=== PATIENT | male | born 1955 | race Caucasian/White ===

== ENCOUNTER 2016-06-05 20:07 | Inpatient (IN) | payer OTHER ==
[~2016-06-05] VITALS: Ht 180.3 cm; Wt 81.6 kg
--- NOTE | 2016-06-05 20:17 | NUR ---
60 YEAR OLD MALE COMPLAINS OF 2 DAYS OF NON RADIATING MID CHEST TIGHTNESS, DENIES SOB. STATES THAT HE HAS ECHO SCHEDULED FOR THIS WEEK DUE TO HE HAD A SYNCOPLE EPISODE OVER A WEEK AGO.
--- NOTE | 2016-06-05 20:21 | ED CARDIAC/CP/PALPITATIONS ---
History of Present Illness General Chief Complaint: Chest Pain Stated Complaint: CHEST PAIN Source: patient, family Exam Limitations: no limitations Vital Signs & Intake/Output Vital Signs & Intake/Output Vital Signs Date Time Temp Pulse Resp B/P Pulse O2 O2 Flow FiO2 Ox Delivery Rate 06/05 2345 96.0 63 18 112/71 98 Nasal 2.0L Cannula 06/058 58 18 116/64 96 Room Air 06/06 2139 96.9 69 18 122/73 98 Nasal 2.0L Cannula 06/05 2114 65 124/81 06/05 2014 97.2 66 18 146/77 98 Room Air Allergies Coded Allergies: No Known Allergies (06/05/16) Reconcile Medications Aspirin (Ecotrin*) 81 MG TABLET.DR 1 TAB PO DAILY HEART/BLOOD (Reported) Cholecalciferol (Vitamin D3) (Vitamin D) (Unknown Strength) CAPSULE (Unknown Dose) PO DAILY SUPPLEMENT (Reported) Ciclopirox Olamine (Ciclopirox) 0.77 % CREAM..G. 1 PALMA TOP BID VITILIGO ( Reported) apply to affected area(s) Levothyroxine Sodium (Levoxyl) 150 MCG TABLET 1 TAB PO EOD THYROID (Reported) Levothyroxine Sodium (Synthroid) 125 MCG TABLET 1 TAB PO EOD THYROID ( Reported) Triage Note: 60 YEAR OLD MALE COMPLAINS OF 2 DAYS OF NON RADIATING MID CHEST TIGHTNESS, DENIES SOB. STATES THAT HE HAS ECHO SCHEDULED FOR THIS WEEK DUE TO HE HAD A SYNCOPLE EPISODE OVER A WEEK AGO. Triage Nurses Notes Reviewed? yes Onset: Gradual Duration: hour(s):, day(s):, waxing and waning Timing: recent history Location: central Radiation: no radiation Activities at Onset: none Aspirin Today: provided at home Associated Symptoms: chest pain, squeezing. HPI: 60-year-old gentleman presents with chest pain for the past 3 days, intermittent , 2-3 out of 10. Nonradiating without diaphoresis or syncopal type symptoms. He notes that on May 25 he had an episode of sudden squeezing chest pain resulting in syncope. He presented to his primary care doctor a few days later who initiated a workup including an EKG and set him up for a cardiac echo. He notes that his chest discomfort is not exertional in nature. He describes it as a squeezing and pressure. He has no shortness of breath. He notes that his brother of a, "massive heart attack, "when he was 54. Past History Travel History Traveled to [place] past 21 day No Medical History Any Pertinent Medical History? 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 No Review of Systems Review of Systems Constitutional: Reports: no symptoms. EENTM: Reports: no symptoms. Respiratory: Reports: no symptoms. Cardiovascular: Reports: no symptoms. GI: Reports: no symptoms. Genitourinary: Reports: no symptoms. Musculoskeletal: Reports: no symptoms. Skin: Reports: no symptoms. Neurological/Psychological: Reports: no symptoms. Hematologic/Endocrine: Reports: no symptoms. Immunologic/Allergic: Reports: no symptoms. All Other Systems: Reviewed and Negative Physical Exam Physical Exam General Appearance: well developed/nourished, mild distress Head: atraumatic, normal appearance Eyes: Bilateral: normal appearance. Ears, Nose, Throat: normal pharynx, normal ENT inspection, hearing grossly normal Neck: normal inspection, supple, full range of motion Respiratory: normal breath sounds, chest non-tender, no respiratory distress, quiet respiration, lungs clear Cardiovascular: regular rate/rhythm Gastrointestinal: normal bowel sounds, soft, non-tender, no organomegaly Back: normal inspection, normal range of motion Extremities: normal inspection, normal capillary refill, normal range of motion, no edema Neurologic/Psych: no motor/sensory deficits, awake, alert, oriented x 3 Skin: intact, normal color, warm/dry Core Measures ACS in differential dx? No Severe Sepsis Present: No Septic Shock Present: No Progress Differential Diagnosis: AMI, aortic dissection, costochondritis, musculoskeletal pain Plan of Care: Orders Procedure Date/time Status Nothing by Mouth 06/06 B Active Add-on Test (ER Only) 06/05 2345 Active Patient Data 06/05 230 Active PARTIAL THROMBOPLASTIN TIME 06/05 2206 Complete PROTHROMBIN TIME 06/05 2206 Complete Saline Lock 06/06 2203 Active Misc Message 06/06 2203 Active ED Holding Orders 06/06 2203 Active Vital Signs 06/06 2203 Active Code Status 06/06 2203 Active Admit to inpatient 06/05 2202 Active EKG 06/05 2152 Active Intake & Output 06/06 2115 Active D-DIMER 06/05 2020 Complete TROPONIN LEVEL 06/05 2016 Complete COMPREHENSIVE METABOLIC PANEL 06/05 2016 Complete CBC WITHOUT DIFFERENTIAL 06/05 2016 Complete EKG 06/05 2008 Active Laboratory Tests 06/05/162239: PT 13.1 H, INR 1.25 H, APTT 31 06/05/162026: Anion Gap 11, Estimated GFR > 60, BUN/Creatinine Ratio 14.2, Glucose 81, Calcium 9.7, Total Bilirubin 0.7, AST 34, ALT 38, Alkaline Phosphatase 87, Troponin I < 0.01, Total Protein 7.2, Albumin 3.8, Globulin 3.4, Albumin/Globulin Ratio 1.1, D-Dimer < 200, CBC w Diff MAN DIFF ORDERED, RBC 5.81, MCV 90.3, MCH 29.9, RDW 14.6 H, MPV 7.1 L, Gran % 56.0, Lymphocytes % 18.1 L, Monocytes % 7.1, Eosinophils % 16.7 H, Basophils % 2.1 H, Absolute Granulocytes 8.2 H, Segmented Neutrophils 52, Band Neutrophils 1, Absolute Lymphocytes 2.7, Lymphocytes 22, Monocytes 8, Absolute Monocytes 1.0 H, Eosinophils 16 H, Absolute Eosinophils 2.4, Basophils 1, Absolute Basophils 0.3, Platelet Estimate ADEQUATE, Normochromic RBCs VERIFIED, PUBS MCHC 33.2 Diagnostic Imaging: Viewed by Me: Radiology Read, CT Scan. Discussed w/RAD: Radiology Read, CT Scan. Radiology Impression: ct angio... no dissection. no pe. CXR Impression: no acute abnormality, no infiltrates, normal size heart, normal mediastinum Initial ED EKG: normal axis, normal intervals, normal p-waves, normal QRS complex, normal sinus rhythm Repeat EKG: unchanged Comments: PATIENT: DRAKE YANG PRESENT AGE: 60 PATIENT ACCOUNT NO: [id number] : 53 LOCATION: [facility] ORDERING PHYSICIAN: JOSE ARMANDO CARBALLO MD SERVICE DATE: 06/05/16 EXAM TYPE: CAT - CTA CHEST-AORTIC DISSECTION STUDY PERFORMED: CTA OF THE CHEST WITH AND WITHOUT CONTRAST CLINICAL INFORMATION: Chest pain. DESCRIPTION: Initial noncontrast CT of the chest was performed. Contrast timing was performed at the level of the pulmonary arteries, arterial phase multidetector volumetric imaging was performed through the chest following the administration of 100 mL Optiray 320 intravenous contrast. No contrast reaction reported Sagittal and coronal reformatted images were obtained on the technologist workstation. Three-dimensional MIP reformatted imaging was performed and reviewed. Total exam dose-length product 907 mGy-cm COMPARISON: Chest radiograph from [facility]. FINDINGS: Vascular: 1. Although contrast bolus timing is optimized for the pulmonary arteries, there is sufficient contrast within the aorta to evaluate for dissection. 2. There is normal origin of the main coronary arteries. Scattered coronary artery calcifications are present. The ascending thoracic aorta is normal in course and caliber without dissection. 3. The aortic arch is normal in caliber without dissection. Normal 3 vessel branching configuration with the great vessels widely patent. 4. The descending thoracic aorta is normal in course and caliber without dissection. 5. There is no central, lobar, or segmental pulmonary arterial filling defect to suggest the presence of a pulmonary embolism. Nonvascular: The central airways are patent. Minimal dependent atelectasis bilaterally. No additional focal or diffuse lung parenchymal abnormality. No dense consolidation. No pneumothorax or pleural effusion. The heart is normal in size. No pericardial effusion. No mediastinal lymphadenopathy. No axillary lymphadenopathy or chest wall mass. Tiny hiatal hernia. The visualized portion of the upper abdomen is unremarkable. BONY STRUCTURES: No acute or suspicious osseous abnormality. Small multilevel endplate osteophytes. IMPRESSION: 1. No aortic dissection. 2. No pulmonary embolism or other acute intrathoracic abnormality. DICTATED BY: JERRELL MONTALVO MD DATE/TIME DICTATED:06/05/162249 DATA MIGRATION CONSULTANT:BANDAR DATE/TIME TRANSCRIBED:06/05/162249 CONFIDENTIAL, DO NOT COPY WITHOUT APPROPRIATE AUTHORIZATION. <Electronically signed in Other Vendor System> SIGNED BY: JERRELL MONTALVO MD 06/05 2300 Departure Departure Disposition: STILL A PATIENT Condition: Stable Clinical Impression Primary Impression: Unstable angina Referrals: TOMAS TOLEDO DO (PCP/Family) Departure Forms: Customer Survey General Discharge Information Critical Care Note Critical Care Note Critical Care Time: 30-74 min Comments: 06/05/16, 22:15... pt is pain free after nitrates.... EKG benign x [address] bryant .... heparin, aspirin, nitrates... will hold off on bblockers due to equivocal data on outcomes in this setting... NPO for possible cath in AM.
[2016-06-05] MEDS ORDERED: LEVOXYL150 MCG PO (20:28)
[2016-06-05] MEDS ORDERED: ASPIRIN EC81 M1 PO (20:29)
[2016-06-05] MEDS ORDERED: SYNTHROID125 MCG PO (20:29)
[2016-06-05] MEDS ORDERED: VITAMIN D2000 UNIT PO (20:30)
[2016-06-05] MEDS ORDERED: CICLOPIROX15 GM TOP (20:30)
[2016-06-05 20:46] LABS: ABSOLUTE BASOPHIL COUNT 0.3 /CUMM (0.0-0.2); ABSOLUTE EOSINOPHIL COUNT 2.4 /CUMM (0.0-0.7); ABSOLUTE GRANULOCYTE CT 8.2 /CUMM (1.4-6.5); ABSOLUTE LYMPH COUNT 2.7 /CUMM (1.2-3.4); BASOPHIL % 2.1 % (0.0-2.0); EOSINOPHIL % 16.7 % (0-5); HEMATOCRIT 52.4 % (42-52); MEAN CORPUSCULAR HGB 29.9 PG (27.0-31.0); MEAN CORPUSCULAR HGB CONC 33.2 G/DL (33.0-37.0); MEAN CORPUSCULAR VOLUME 90.3 FL (80.0-94.0); MEAN PLATELET VOLUME 7.1 FL (7.4-10.4); PLATELET COUNT 300 /CUMM (130-400); RBC DISTRIBUTION WIDTH 14.6 % (11.5-14.5); RED BLOOD CELL CT 5.81 /CUMM (4.70-6.10); WHITE BLOOD CELL COUNT 14.7 /CUMM (4.8-10.8)
--- NOTE | 2016-06-05 20:50 | NUR ---
DR. CARBALLO IN ROOM EVALUATING THE PT.
--- NOTE | 2016-06-05 20:57 | NUR ---
PT TAKEN TO [facility] VIA STRETCHER.
--- NOTE | 2016-06-05 21:15 | NUR ---
PT BACK FROM [facility]. IV #20 INSERTED ON LEFT WRIST. MEDICATED WITH NITRO SL FOR CHEST PAIN 06/03. VITAL SIGNS STABLE PRIOR TO MED ADMINISTRATION.
--- NOTE | 2016-06-05 21:25 | NUR ---
PT REPORTS CHEST PAIN DOWN TO 04/05 FROM 06/03. MD NOTIFIED. APPLIED NITRO PATCH ON LEFT CHEST WALL AND ASPIRIN 325MG PO ORDERED. V/S STABLE. PLACED ON O2 2L VIA NC. 98%RA.
--- NOTE | 2016-06-05 21:35 | RADIOLOGY REPORT ---
EXAMINATION: XR CHEST CLINICAL INFORMATION: Chest pain. COMPARISON: None. TECHNIQUE: PA and lateral views of the chest were obtained. FINDINGS: The lungs are well-expanded and clear without focal airspace consolidation. No pleural effusions or pneumothoraces are identified. Cardiomediastinal contours are within normal limits. Soft tissues are unremarkable. No acute osseous abnormality is identified. IMPRESSION: No acute pulmonary process.
--- NOTE | 2016-06-05 22:25 | NUR ---
PT TAKEN TO CT SCAN.
--- NOTE | 2016-06-05 22:53 | NUR ---
PT / PTT DRAWN GIVEN HEPARIN BOLUS HEPARIN GTT AT 20 ML/HR
--- NOTE | 2016-06-05 23:00 | CT SCAN REPORT ---
STUDY PERFORMED: CTA OF THE CHEST WITH AND WITHOUT CONTRAST CLINICAL INFORMATION: Chest pain. DESCRIPTION: Initial noncontrast CT of the chest was performed. Contrast timing was performed at the level of the pulmonary arteries, arterial phase multidetector volumetric imaging was performed through the chest following the administration of 100 mL Optiray 320 intravenous contrast. No contrast reaction reported Sagittal and coronal reformatted images were obtained on the technologist workstation. Three-dimensional MIP reformatted imaging was performed and reviewed. Total exam dose-length product 907 mGy-cm COMPARISON: [facility] radiograph from [facility]. FINDINGS: Vascular: 1. Although contrast bolus timing is optimized for the pulmonary arteries, there is sufficient contrast within the aorta to evaluate for dissection. 2. There is normal origin of the main coronary arteries. Scattered coronary artery calcifications are present. The ascending thoracic aorta is normal in course and caliber without dissection. 3. The aortic arch is normal in caliber without dissection. Normal 3 vessel branching configuration with the great vessels widely patent. 4. The descending thoracic aorta is normal in course and caliber without dissection. 5. There is no central, lobar, or segmental pulmonary arterial filling defect to suggest the presence of a pulmonary embolism. Nonvascular: The central airways are patent. Minimal dependent atelectasis bilaterally. No additional focal or diffuse lung parenchymal abnormality. No dense consolidation. No pneumothorax or pleural effusion. The heart is normal in size. No pericardial effusion. No mediastinal lymphadenopathy. No axillary lymphadenopathy or chest wall mass. Tiny hiatal hernia. The visualized portion of the upper abdomen is unremarkable. BONY STRUCTURES: No acute or suspicious osseous abnormality. Small multilevel endplate osteophytes. IMPRESSION: 1. No aortic dissection. 2. No pulmonary embolism or other acute intrathoracic abnormality.
--- NOTE | 2016-06-05 23:00 | NUR ---
PT REPORTS NO CHEST PAIN BUT "SOME DISCOMFORTS" IN THE CHEST.
[2016-06-05 23:10] LABS: PT 13.1 SEC (9.4-12.5); PTT 31 SEC (25-37)
--- NOTE | 2016-06-05 23:15 | NUR ---
BED ASSIGNED 180-1
--- NOTE | 2016-06-05 23:40 | NUR ---
REPORT CALLED. HOUSE STAFF IN ROOM EVALUATING THE PT.
--- NOTE | 2016-06-06 00:05 | NUR ---
DRAKE YANG Nurse Note by: JULIANNE BOSCH I agree with the POLICY MANAGER findings/evaluation of this patient's condition. Entered by: JULIANNE BOSCH Date: 06/06/16 Time: 0005
--- NOTE | 2016-06-06 01:14 | History & Physical ---
CHERIE POLLOCKABBY 06/06/16 0114: General Information and HPI History of Present Illness: 60-year-old man with past medical history of hypothyroidism and vitiligo seen for evaluation of chest pain. Patient reports being in his normal state of health until being awoken from sleep on 05/25/16 with severe acute onset chest pain and associated disorientation. Patient reports ambulating to the restroom and subsequently losing consciousness. He admits to sustaining several injuries that he feels to be suggestive of seizure activity but otherwise denies any bowel/bladder incontinence. Patient did not seek any immediate medical attention after this episode however did schedule an appointment with his primary care provider Dr. Etienne the following week. Patient was reportedly advised to seek an outpatient exercise stress test for further evaluation of this chest pain episode and begun on 81 mg aspirin daily therapy during his appointment the following week. This past Monday on 06/03/16 patient reports developing 2-3/10 substernal bandlike chest pain without radiation or alleviating/aggravating factors with associated intermittent episodes of lightheadedness associated with physical exertion. Presently patient is reporting persistence of this mild substernal chest pain. He reports good exercise tolerance without any associated shortness of breath. He does admit to a new nonproductive cough however. Otherwise he denies any blurred/double vision, dizziness, headache, fever, chills, palpitations, shortness of breath, nausea, vomiting, diarrhea, decreased oral intake, constipation, urinary frequency/urgency/burning/pain, numbness/ tingling, further loss of consciousness. 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 and describes his job as a enjoyable with minimal stress, lives at home with his and son and admits to having a good home life, participates in a 4 day a week exercise regimen, adheres to a low carbohydrate low dairy lean protein diet Allergies/Medications Allergies: Coded Allergies: No Known Allergies (06/05/16) Home Med list Aspirin (Ecotrin*) 81 MG TABLET.DR 1 TAB PO DAILY HEART/BLOOD (Reported) Atorvastatin Calcium 80 MG TABLET 80 MG PO 1700 [facility] Cholecalciferol (Vitamin D3) (Vitamin D) 2,000 UNIT CAPSULE 1 TAB PO DAILY SUPPLEMENT (Reported) Ciclopirox Olamine (Ciclopirox) 0.77 % CREAM..G. 1 PALMA TOP BID VITILIGO ( Reported) apply to affected area(s) Levothyroxine Sodium (Levoxyl) 150 MCG TABLET 1 TAB PO EOD THYROID (Reported) Past History Travel History Traveled to [place] past 21 day No Medical History Neurological: NONE EENT: NONE Cardiovascular: NONE Respiratory: NONE Gastrointestinal: NONE Hepatic: NONE Renal: NONE Musculoskeletal: NONE Psychiatric: NONE Endocrine: hypothyroidism Blood Disorders: NONE Cancer(s): NONE MONITORING MANAGER/Reproductive: NONE Surgical History Surgical History: appendectomy Past Family/Social History Psychosocial History Where do you live? Home Who Do You Live With? spouse, child Services at Home: None Primary Language: Bahamian Smoking Status: Never Smoked ETOH Use: denies use Illicit Drug Use: denies illicit drug use Review of Systems Review of Systems Constitutional: Reports: see HPI. Exam & Diagnostic Data Last 24 Hrs of Vital Signs/I&O Vital Signs Date Time Temp Pulse Resp B/P Pulse O2 O2 Flow FiO2 Ox Delivery Rate 06/06 0131 96.1 66 20 120/80 95 Nasal 1.0L Cannula 06/056 96.0 63 18 112/71 98 Nasal 2.0L Cannula 06/058 58 18 116/64 96 Room Air 06/06 2139 96.9 69 18 122/73 98 Nasal 2.0L Cannula 06/05 2114 65 124/81 06/05 2014 97.2 66 18 146/77 98 Room Air Intake & Output 06/06 0800 06/06 0000 06/05 1600 Intake Total Output Total Balance Patient 88.451 kg Weight Physical Exam General Appearance Alert, Oriented X3, Cooperative, No Acute Distress Skin No Rashes, No Breakdown, No Significant Lesion HEENT Atraumatic, PERRLA, EOMI, Mucous Membr. moist/pink Neck Supple, No JVD, +2 Carotid Pulse wo Bruit, No LAD Cardiovascular Regular Rate, Normal S1, Normal S2, No Murmurs, No chest wall tenderness Lungs Clear to Auscultation, Normal Air Movement Abdomen Normal Bowel Sounds, Soft, No Tenderness, No Hepatospenomegaly, No Masses Neurological Normal Speech, Normal Tone, Cranial Nerves 3-12 NL Extremities No Clubbing, No Cyanosis, No Edema, Normal Pulses, No Tenderness/ Swelling Vascular Normal Pulses, Pulses Symmetrical Last 24 Hrs of Labs/Jin: Laboratory Tests 06/05/16 2240: PT 13.1 H, INR 1.25 H, APTT 31 06/05/167: Anion Gap 11, Estimated GFR > 60, BUN/Creatinine Ratio 14.2, Glucose 81, Calcium 9.7, Total Bilirubin 0.7, AST 34, ALT 38, Alkaline Phosphatase 87, Creatine Kinase 229 H, Troponin I < 0.01, Total Protein 7.2, Albumin 3.8, Globulin 3.4, Albumin/Globulin Ratio 1.1, D-Dimer < 200, CBC w Diff MAN DIFF ORDERED, RBC 5.81 , MCV 90.3, MCH 29.9, RDW 14.6 H, MPV 7.1 L, Gran % 56.0, Lymphocytes % 18.1 L, Monocytes % 7.1, Eosinophils % 16.7 H, Basophils % 2.1 H, Absolute Granulocytes 8.2 H, Segmented Neutrophils 52, Band Neutrophils 1, Absolute Lymphocytes 2.7, Lymphocytes 22, Monocytes 8, Absolute Monocytes 1.0 H, Eosinophils 16 H, Absolute Eosinophils 2.4, Basophils 1, Absolute Basophils 0.3 , Platelet Estimate ADEQUATE, Normochromic RBCs VERIFIED, PUBS MCHC 33.2 Diagnostic Data EKG Results Sinus bradycardia Heart rate 58 AR [address] QTc [address] segment changes CXR Results IMPRESSION: No acute pulmonary process. Other Results EXAM TYPE: CAT - CTA CHEST-AORTIC DISSECTION IMPRESSION: 1. No aortic dissection. 2. No pulmonary embolism or other acute intrathoracic abnormali Assessment/Plan Assessment: 60-year-old man with no personal cardiovascular history but with an extensive family cardiovascular history seen for evaluation of an episode of acute onset chest pain from sleep and persistent mild substernal chest pain responsive to nitroglycerin. ED course: -Vitals: Temp 96.0-97.2, HR 58-66, RR 18-20, BP 112-146/64-81, O2 95-98% on room air -Significant Labs: WBC 14.7, Hgb/HCT 17.4/52.4, PLT 300, eosinophils 16.7, normal serum chemistries, normal hepatic function test, troponin <0.01, creatinine kinase 229, INR 1.25, PT 13.1, d-dimer <200 -Studies: EKG sinus bradycardia with non-significant Q waves in inferior leads without any ST segment changes, chest x-ray-no acute cardiopulmonary process, CTA chest-no aortic dissection or pulmonary embolism or other acute intrathoracic abnormality -Interventions: Cardiology consult, heparin drip with bolus, aspirin 325 mg by mouth, atorvastatin 80 mg by mouth, Nitro-Bid/Nitrostat Acute coronary syndrome Patient with recent history of acute onset severe chest pain waking him from sleep and associated episode of loss of consciousness with new onset persistent substernal bandlike chest pain that improves with nitroglycerin. solar energy consultant and designer Dr. Grijalva was contacted from the ED who reportedly recommended the previously stated interventions of aspirin/statin/nitroglycerin/heparin. It was reportedly discussed that patient would benefit potentially from a cardiac catheterization for further evaluation of his persistent chest pain. Patient has not had any cardiovascular risk stratification in the past. Beta ankit was reportedly not recommended as per ED notes. -Telemetry -Trend troponin/EKGs -Heparin Drip -Aspirin/Statin/Nitrobid/Nitrostat -NPO overnight for potential cardiac catheterization in morning -Cardiology consult -F/U HbA1c/Lipid Panel Hypothyroidism -Levothyroxine 125 g by mouth every other day -Levothyroxine 150 g by mouth every other day Pain Plan-acetaminophen Diet-nothing by mouth overnight for possible cardiac catheterization DVT PPx-anticoagulation with heparin drip Code Status-full code As Ranked By This Provider Problem List: 1. Unstable angina Core Measures/Miscellaneous Acute Coronary Syndrome ACS Diagnosis: Yes ASA W/I 24hr of admit Yes Beta-Ankit W/I 24hrs No LDL assessed W/I 24 hrs Yes Currently on Statin Yes Cerebrovascular Accident CVA/TIA Diagnosis: No Congestive Heart Failure CHF Diagnosis: No Venous Thromboembolism VTE Risk Factors: Acute medical illness, Age > 40 No [facility] VTE prophylaxis d/t: No contraindications No VTE Pharm Prophylaxis d/t: No contraindications VTE Diagnosis: No VTE Type: NONE VTE Confirmed by (Test): NONE Severe Sepsis Severe Sepsis Present: No Septic Shock Septic Shock Present: No Miscellaneous Documentation Attending Case Discussed With: MAXI AGUILAR MD Primary Care Physician: TOMAS ETIENNE DO Patient sees these Specialists None Level of Patient Care: Telemetry Consults Needed: Consulting Specialty: Cardiology INGA CHIN 06/06/16 0212: Resident Review Statement Resident Statement: examined this patient, discussed with internet and e business project manager, agreed with internet and e business project manager, amended to note Other Findings: 60-year-old man with past medical history of hypothyroidism, vitiligo came with chief complaint of chest pain for 3 days and one episode of syncope about 10 days ago. Patient reported he had an episode of sharp chest pain about 10 days ago and after that he had an episode of syncope/passing out on the bathroom with head and knee trauma. However he denies any palpitation, headache, dizziness, nausea , vomiting before or after that episode. Patient went to his PCP and he was scheduled for echocardiogram however for about the previous 3 days he experienced bandlike 4 out of 10 chest pain associated with mild dizziness once, which prompted him to come to the hospital. Patient denies any nausea, vomiting, headache, abdominal pain, joint pain, fevers, chills. Patient does report mild cough without any sputum production or couple of days. A strong family history for CAD. Vital signs on admission AR 58, RR 18, blood pressure 116/64, pulse oximetry 96 Physical exam was remarkable for vitiligo and full details are written above. Chest x-ray did not show any acute pathology Chest CTA was unremarkable for PE and aortic dissection WBC 14.7, hematocrit 52.4, [id number] , d-dimer less than 200 ,CPK 229, trop less than 0.01 EKG showed sinus bradycardia, 53, QTC 395, no acute ST-T changes upon arrival in ED patient received nitroglycerin which improved his pain .325 asirin was given Asessment and plan #Chest pain/unstable angina -Admit to telemetry -NPO possible catheterization tomorrow - continue aspirin,statin -Mild IV hydration -Continue IV heparin -FLORENCIO score 2-3 -lipid panel -Cardiology will see the patient tomorrow -ekg and troponin x 3 -echo in the [facility] -Morphine and Tylenol for pain -Sublingual nitroglycerin for severe chest pain -Patient also has eosinophiliaone of the causes of eosinophilia is cholesterol plaque rupture # hypothyroidism -Continue levothyroxine 150 MCG daily in the morning #history of vitiligo -Check cortisol a.m. to rule out any autoimmune induced adrenal insufficiency #Full code, NPO, Tylenol and morphine for pain, DVT prophylaxis is IV heparin and Alps MAXI AGUILAR 06/06/16 0242: Attending MD Review Statement Attending Statement Attending MD Statement: examined this patient, discuss w/resident/PA/EDUCATIONAL ADMINISTRATOR, agreed w/resident/PA/EDUCATIONAL ADMINISTRATOR, reviewed EMR data (avail), reviewed images, amended to note Attending Assessment/Plan: CC: chest pain PMHx: Hypothyroidism, appendectomy, peptic ulcer disease Patient came to ER for chest pain, since the past 3 days, gradual onset, persistent, not aggravated by exertion, substernal, nonradiating, 2-3 . Not associated with diaphoresis, SOB, palpitations or syncopal or presyncopal type symptoms. Patient mentioned that on May 25 he had an episode of sudden chest pain and syncope. He did not go to ER at that time but went to see PCP who suggested stress test. Meanwhile, patient cut down on his routine exercise but have been walking up to one and half mile, without aggravation of chest pain or SOB. He Denies history of high cholesterol, diabetes, smoking, hypertension but has significant family history of brother dying of heart attack at the age of 56 and father having angina. Patient was started on aspirin after his recent episode of chest pain. Patient's chest pain improved with nitroglycerin given in ER. Vitals: Afebrile, HR in 60s, RR, BP, O2 saturation in acceptable range. On examination: A O 3, no acute distress, neck supple, no JVD, no lymphadenopathy, mucosa moist, no focal neurological deficit. CVS: S1-S2, RRR. RS: Clear to auscultate bilaterally. Abdomen: Soft, NT, ND, bowel sounds present. No obvious skin rashes or inflammation. Labs: WBC 14.7, with neutrophils 56%, lymphocytes 18%, and eosinophils 16%. D- dimer less than 200, BMP, LFT unremarkable. CK 229, troponin I is less than 0.01. EKG: Normal sinus rhythm, AR interval 140, no acute ST-T changes. CXR: No acute pulmonary process. CTA: No aortic dissection, no pulmonary embolism. A and P #1 chest pain: Atypical, present at rest, substernal, relieved with nitroglycerin. No history of dyslipidemia, DM, HTN, smoking but significant family history. No ST-T wave changes for now, troponin first set negative. Unstable angina. Cardiology was called from ER, and patient was started on heparin drip. Continue heparin for now, trend troponin, serial EKG, continue aspirin, patient's heart rate is 50s to 60s (patient may not tolerate a beta ankit), check lipid panel, nothing by mouth after midnight. #2 eosinophilia: Unclear etiology, repeat CBC BMP in a.m., patient is completely asymptomatic on ROS for recurrent parasitic infection, patient does have history of vitiligo, and hyperthyroidism s/p radioablation (according to the charts) : Hypothyroidism, check 8 AM cortisol. #3 hypothyroidism: Continue home doses of levothyroxine
[2016-06-06 01:31] VITALS: BP 120/80
--- NOTE | 2016-06-06 02:43 | Admission Certification ---
Admission Certification Certification Statement - As attending physician, I certify that at the time of - admission, based on clinical presentation, severity of - symptoms, need for further diagnostic testing and - therapeutic interventions, and risk of adverse outcomes - without in-hospital treatment, in my clinical assessment, - this patient requires an acute hospital stay for a minimum - of two nights or longer. I have also considered psychsocial - factors such as support system, advanced age, financial - issues, cognitive issues, and failed out-patient treatments, - past re-admission history, safety of patient, and lack of - compliance as applicable. Specific rationale supporting this admission is: Persistent chest pain
[2016-06-06 05:29] LABS: PTT 104 SEC (25-37)
[2016-06-06 08:17] VITALS: BP 108/64
[2016-06-06 09:42] LABS: ABSOLUTE BASOPHIL COUNT 0.1 /CUMM (0.0-0.2); ABSOLUTE EOSINOPHIL COUNT 2.4 /CUMM (0.0-0.7); ABSOLUTE GRANULOCYTE CT 6.8 /CUMM (1.4-6.5); ABSOLUTE LYMPH COUNT 1.8 /CUMM (1.2-3.4); ABSOLUTE MONOCYTE COUNT 0.8 /CUMM (0.10-0.60); BASOPHIL % 0.5 % (0.0-2.0); GRANULOCYTE % 57.6 % (42.2-75.2); MEAN CORPUSCULAR HGB 29.8 PG (27.0-31.0); MEAN CORPUSCULAR HGB CONC 33.1 G/DL (33.0-37.0); MEAN CORPUSCULAR VOLUME 89.9 FL (80.0-94.0); MEAN PLATELET VOLUME 7.3 FL (7.4-10.4); PLATELET COUNT 265 /CUMM (130-400); RBC DISTRIBUTION WIDTH 14.8 % (11.5-14.5); RED BLOOD CELL CT 5.27 /CUMM (4.70-6.10); WHITE BLOOD CELL COUNT 11.9 /CUMM (4.8-10.8)
[2016-06-06] MEDS ORDERED: ATORVASTATIN CA80 M1 PO (11:40)
--- NOTE | 2016-06-06 11:44 | Discharge Summary ---
Visit Information Visit Dates Admission Date: 06/05/16 Discharge Date: 06/06/16 Hospital Course Course Attending Physician: MAXI AGUILAR MD Primary Care Physician: TOMAS ETIENNE DO Consulting Request: Consulting Specialty: Cardiology Consulting Physician: Dr. Matthew Grijalva MD Reason for Consult: Unstable angina with significant family history of CAD Hospital Course: Mr. Guero Guerra is a pleasant 60 year old male with PMH hypothyroidism and vitiligo who presented to the [facility] on 06/05/16 with chief complaint of chest pain. According to the patient, on 05/25/16 he noted acute onset, severe chest pain and associated disorientation. At that time, he was ambulating to the restroom and loss consciousness with subsequent minor trauma/abrasions to his face and knees. Patient did not seek any immediate medical attention after this episode, however did schedule an appointment with his primary care provider Dr. Etienne the following week. He jamie reportedly advised to seek an outpatient exercise stress test for further evaluation of this chest pain and was started on 81 mg aspirin daily. However, on Monday on 06/03/16, patient reported developing substernal, band-like chest pain, rated a 2/10 on the pain scale, without radiation or alleviating/ aggravating factors. This was associated intermittent episodes of lightheadedness associated with physical exertion, prompting his presentation to the emergency room. In the ED: Vital signs showed T 96.0-97.2, HR 58-66, RR 18-20, BP 112-146/64-81 and O2 95-98% on room air. Labs were significant for WBC 14.7, Hgb/HCT 17.4/52.4 , PLT 300, eosinophils 16.7, normal serum chemistries, normal hepatic function test, troponin <0.01, creatinine kinase 229, INR 1.25, PT 13.1, d-dimer <200. EKG showed sinus bradycardia with non-significant Q waves in inferior leads without any ST segment changes. CXR showed no acute cardiopulmonary process. CTA chest showed no aortic dissection, pulmonary embolism or other acute intrathoracic abnormality. Physical exam: General Appearance: Alert, Oriented X3, Cooperative, No Acute Distress Skin: No Rashes, No Breakdown, No Significant Lesion HEENT: Atraumatic, PERRLA, EOMI, Mucous Membr. moist/pink Neck: Supple, No JVD, +2 Carotid Pulse wo Bruit, No LAD Cardiovascular: Regular Rate, Normal S1, Normal S2, No Murmurs, No chest wall tenderness Lungs: Clear to Auscultation, Normal Air Movement Abdomen: Normal Bowel Sounds, Soft, No Tenderness, No Hepatospenomegaly, No Masses Neurological: Normal Speech, Normal Tone, Cranial Nerves 3-12 NL Extremities: No Clubbing, No Cyanosis, No Edema, Normal Pulses, No Tenderness/ Swelling Vascular: Normal Pulses, Pulses Symmetrical Patient was admitted to the telemetry floor and the following was the management : 1. Atypical chest pain: Chest pain was described as constant, non-radiating, band-like and not worsened by physical exertion. Cardiology was consulted while patient was in the emergency room and patient was started on IV heparin per recommendations from Dr. Matthew Grijalva MD. FLORENCIO risk score noted to be 2 on admission. Patient was admitted to the telemetry floor for continuous cardiac monitoring. Patient was made NPO pending possible cardiac cath the following morning. ACS was ruled out with 3 negative troponins and concurrent EKGs that showed no ST/T wave changes. Patient was continued on daily aspirin and a statin was started along with nitro for symptomatic management (of note, no improvement in chest pain with nitroglycerin). A bedside echocardiogram was obtained and performed by the attending operations research group manager Dr. Matthew Grijalva MD. This echocardiogram showed no regional wall motion abnormalities, abnormal valvular mechanics or joseph abnormality. Due to reassuring findings on echocardiogram, patient's diet was switched to heart healthy. Dr. Grijalva suggested close follow up after discharge in his office for formal echocardiogram, likely stress test and lyme titer (recent history of tick bite in April). Patient was instructed to return if any worsening of the chest pain, diaphoresis, shortness of breath or other concerning symptoms arise. Patient was prescribed a statin on discharge. 2. Hypothyroidism: Patient was continued on his home medication of levothyroxine 125 g by mouth every other day alternating with levothyroxine 150 g by mouth every other day. He will continue these medications after discharge and follow up with his PCP within 7 days for continued care. 3. Eosinophilia: Patient was noted to have WBC 14.7 on admission with 16% eosinophils. Etiology unclear during admission. Follow up CBC the next day showed WBC 11.9 and eosinophils 20%. Patient was completely asymptomatic with no obvious history suggestive of parasitic infection. Patient should have repeat lab work drawn by his PCP within 1-2 weeks for follow up evaluation of this eosinophilia. 4. Code status: FULL 5. DVTP: Heparin drip 6. Diet: NPO transitioned to Heart Healthy Complications: None. Allergies: Coded Allergies: No Known Allergies (06/05/16) Significant Procedures: CXR: IMPRESSION: No acute pulmonary process. Chest CTA: IMPRESSION: 1. No aortic dissection. 2. No pulmonary embolism or other acute intrathoracic abnormality. Disposition Summary Disposition Principal Diagnosis: Unstable angina Additional Diagnosis: Hypothyroidism Vitiligo Discharge Disposition: home or self care Discharge Instructions General Discharge Information Code Status: Full Code Patient's Diet: Heart Healthy. Patient's Activity: Self-limited, as tolerated. Follow-Up Instructions/Appts: Please follow up with your PCP within 7 days of discharge. Please follow up with Dr. Grijalva within 7 days for a formal echocardiogram and further management (possible stress test). Please take all medications as directed, we have transmitted your new medication (atorvastatin) to your pharmacy. Please return if you have recurrent or worsening symptoms or any concerns. Medications at Discharge Discharge Medications: Continue taking these medications: Levothyroxine Sodium (Levoxyl) 150 MCG TABLET 1 Tablet ORAL Every other day Comments: Last Taken: 06/06/16 Time: 640 AM Aspirin (Ecotrin*) 81 MG TABLET.DR 1 Tablet ORAL DAILY Comments: Last Taken: 06/06/16 Time: 640 AM Cholecalciferol (Vitamin D3) (Vitamin D) 2,000 UNIT CAPSULE 1 Tablet ORAL DAILY Comments: NOT GIVEN IN THE HOSPITAL Ciclopirox Olamine (Ciclopirox) 0.77 % CREAM..G. 1 Application On the skin TWICE DAILY Qty = 90 Instructions: apply to affected area(s) Comments: NOT GIVEN IN THE HOSPITAL Start taking the following new medications: Atorvastatin Calcium (Atorvastatin Calcium) 80 MG TABLET 80 Milligram ORAL 5 PM Qty = 30 No Refills Copies To: HIREN POLLOCK,[facility], MD Review Statement Documenting Attending: MARZENA POLLOCK,RENAN
--- NOTE | 2016-06-06 11:44 | Patient Discharge Instructions ---
Discharge Instructions General Discharge Information You were seen/treated for: Chest pain 1 episode of syncope You had these procedures: Bedside echocardiogram Special Instructions: Please follow up with your PCP within 7 days of discharge. Please follow up with Dr. Grijalva within 7 days for a formal echocardiogram and further management (possible stress test). Please take all medications as directed, we have transmitted your new medication (atorvastatin) to your pharmacy. Please return if you have recurrent or worsening symptoms or any concerns. Diet Recommended Diet: Heart Healthy Activity Activity Self Limited: Yes Acute Coronary Syndrome Inclusion Criteria At DC or during hospital stay patient has or had the following: ACS DIAGNOSIS No Discharge Core Measures Meds if any: Prescribed or Continued at Discharge Meds if any: NOT Prescribed or Continued at Discharge Congestive Heart Failure Inclusion Criteria At DC or during hospital stay patient has or had the following: CHF DIAGNOSIS No Discharge Core Measures Meds if any: Prescribed or Continued at Discharge Meds if any: NOT Prescribed or Continued at Discharge Cerebrovascular accident Inclusion Criteria At DC or during hospital stay patient has or had the following: CVA/TIA Diagnosis No Discharge Core Measures Meds if any: Prescribed or Continued at Discharge Meds if any: NOT Prescribed or Continued at Discharge Venous thromboembolism Inclusion Criteria VTE Diagnosis No VTE Type NONE VTE Confirmed by (Test) NONE Discharge Core Measures - Per Current guidelines, there needs to be overlap - treatment for the first 5 days of Warfarin therapy. - If discharged on Warfarin prior to 5 days of - overlap therapy, the patient will need to be - assessed for post discharge needs including - *Post discharge parental anticoagulation - *Warfarin and/or parental anticoagulation education - *Follow up date to check INR post discharge At least 5 days overlap therapy as Inpatient No Meds if any: Prescribed or Continued at Discharge Note: Overlap Therapy is Warfarin and Anticoagulant Meds if any: NOT Prescribed or Continued at Discharge
--- NOTE | 2016-06-06 11:48 | Event Note ---
Event Note Event Note: Patient evaluated with bedside echocardiogram by attending linen room supervisor Dr. Matthew Grijalva MD around 10 AM. No obvious wall motion abnormalities, valvular changes, global dysfunction or other abnormalities noted. Again emphasized by the patient was constant, 2/10 substernal, non-radiating chest pain that does not worsen on exertion and is not relieved by nitro. With ACS ruled out x 3 and no overt abnormalities noted on bedside echocardiogram, decision between attending physician and attending linen room supervisor Dr. Grijalva was to discharge patient. He will have close follow up with Dr. Grijalva within 7 days for formal echocardiogram, possible stress test and lyme titer to be drawn (as he has history of tick bite).
[2016-06-06 12:07] LABS: HEMATOCRIT 47.4 % (42-52)
[2016-06-06 12:08] LABS: EOSINOPHIL % 20.7 % (0-5)
--- NOTE | 2016-06-06 22:23 | Cons- Cardiology ---
General Information and HPI Consulting Request Date of Consult: 06/06/16 Requested By: MAXI AGUILAR MD Reason for Consult: chest pain, syncope Source of Information: patient History of Present Illness: This is a pleasant 60 y/o male with a PMH of remote hyperthyroid s/p radio- iodine ablation many years ago now on thyroid replacement who presents with sternal chest pain of low intensity which has been constant for the last few days with no waxing or waning and no exacerbating or alleviating factors. No associated dyspnea or palpitations. No change with position or eating. No change with exertion. No nausea or diaphoresis. No radiation. No fever. Sharp in quality, non-pleuritic. He does not smoke but does have a family hx of CAD. Of note he had an episode of sharp lower back pain at the end of April and that night had an episode of syncope without palpitations or incontinence. Unclear duration. No previous syncope and no recurrence. Denies any previous cardiac history. Ambulates without difficulty. He did find a non-embedded tick on him in April with no rash, fever, or fatigue. He did report some dyspepsia symptoms last month. Allergies/Medications Allergies: Coded Allergies: No Known Allergies (06/05/16) Home Med List: Aspirin (Ecotrin*) 81 MG TABLET.DR 1 TAB PO DAILY HEART/BLOOD (Reported) Atorvastatin Calcium 80 MG TABLET 80 MG PO 1700 Heart health Cholecalciferol (Vitamin D3) (Vitamin D) 2,000 UNIT CAPSULE 1 TAB PO DAILY SUPPLEMENT (Reported) Ciclopirox Olamine (Ciclopirox) 0.77 % CREAM..G. 1 PALMA TOP BID VITILIGO ( Reported) apply to affected area(s) Levothyroxine Sodium (Levoxyl) 150 MCG TABLET 1 TAB PO EOD THYROID (Reported) Current Medications: Current Medications Sig/Grace Start time Last Medication Dose Route Stop Time Status Admin Acetaminophen 650 MG Q6P PRN 06/06 0200 DCD 06/06 PO 0752 Aspirin 81 MG 7:30AM 06/06 0730 DCD 06/06 PO 0640 Aspirin 0 .STK-MED ONE 06/05 2132 DC PO Aspirin 325 MG ONCE ONE 06/05 2129 DC 06/05 PO 06/05 Atorvastatin Calcium 80 MG 1700 06/06 1700 DCD PO Atorvastatin Calcium 80 MG ONCE ONE 06/05 2200 DC 06/05 PO 06/05 220 2244 Heparin Sodium 4,000 UNIT ONCE ONE 06/05 2215 DC 06/05 (Porcine) IV 06/06 2215 2250 Heparin Sodium 0 .STK-MED ONE 06/05 221 DC (Porcine) .ROUTE Heparin Sodium 25,000 UNIT Q24H 06/05 2200 DC 06/05 (Porcine) IV 2251 Sodium Chloride 500 ML Levothyroxine Sodium 0.15 MG 7:30AM 06/06 0730 DCD 06/06 PO 0640 Levothyroxine Sodium 0.15 MG .[EOD] 06/06 0130 DC PO Morphine Sulfate 2 MG Q4P PRN 06/06 0200 DCD IV Multivitamins 1 TAB DAILY 06/06 1000 DCD 06/06 PO 0954 Nitroglycerin 0.4 MG Q 5 MINUTES X 3 DO.. 06/06 0215 DCD SL Nitroglycerin 1 GM ONCE ONE 06/05 2130 DC 06/05 TOP 06/05 Nitroglycerin 0 .STK-MED ONE 06/05 2129 DC TOP Omeprazole 20 MG DAILY AC 06/07 0700 DCD PO Patient Medication 1 UNIT 0700 06/07 0700 DCD Teaching ED 06/07 0701 Sodium Chloride 1,000 ML Q13H 06/06 0200 DCD 06/06 IV 0300 Review of Systems Review of Systems: As per above HPI. Remainder of 10 point ROS was reviewed and was negative. Past History Travel History Traveled to [place] past 21 day No Medical History Blood Transfusion Hx: No Neurological: NONE EENT: NONE Cardiovascular: NONE Respiratory: NONE Gastrointestinal: NONE Hepatic: NONE Renal: NONE Musculoskeletal: NONE Psychiatric: NONE Endocrine: hypothyroidism Blood Disorders: NONE Cancer(s): NONE SPORT INTERNSHIP/Reproductive: NONE Surgical History Surgical History: appendectomy Psychosocial History Where Do You Live? Home Who Do You Live With? spouse, child Services at Home: None Primary Language: Khmer Smoking Status: Never Smoked ETOH Use: denies use Illicit Drug Use: denies illicit drug use Exam & Diagnostic Data Vital Signs and I&O Vital Signs Date Time Temp Pulse Resp B/P Pulse O2 O2 Flow FiO2 Ox Delivery Rate 06/06 816 98.4 70 16 108/64 95 Nasal Cannula 06/06 0800 Nasal 2.0L Cannula 06/06 130 96.1 66 20 120/80 95 Nasal 1.0L Cannula 06/06 0000 98 06/05 2346 96.0 63 18 112/71 98 Nasal 2.0L Cannula 06/058 58 18 116/64 96 Room Air 06/06 2139 96.9 69 18 122/73 98 Nasal 2.0L Cannula 06/05 2114 65 124/81 Intake & Output 06/06 1600 06/06 0800 06/06 0000 06/05 1600 06/05 0800 06/05 0000 Intake Total 1049.5 345 Output Total Balance 1049.5 345 Intake, IV 449.5 345 Intake, Oral 600 Patient 180 lb Weight Physical Exam: General: no apparent distress. Alert. Eyes: No obvious scleral icterus. HEENT: No jugular venous distention or abnormal jugular venous pulsations. Cardiovascular: Normal intensity S1/S2. PMI not grossly displaced. Respiratory: No rales or rhonchi Abdomen: Soft, nontender with no guarding or rebound tenderness. Musculoskeletal: No clubbing or cyanosis noted Skin: No obvious rashes or ulcerations. Neurologic: No gross focal deficits noted. Labs/Jin Results: Laboratory Tests 06/06 06/06 06/06 1048 0855 0455 Chemistry Sodium (137 - 145 mmol/L) 136 L Potassium (3.5 - 5.1 mmol/L) 4.4 Chloride (98 - 107 mmol/L) 104 Carbon Dioxide (22 - 30 mmol/L) 23 Anion Gap (5 - 16) 9 BUN (9 - 20 mg/dL) 14 Creatinine (0.7 - 1.2 mg/dL) 1.0 Estimated GFR (>60 ml/min) > 60 BUN/Creatinine Ratio (7 - 25 %) 14.0 Troponin I (<0.11 ng/ml) < 0.01 Cortisol AM Sample (4.46 - 22.7 ug/dL) 12.9 Coagulation APTT (25 - 37 SEC) 104 *H Hematology CBC w Diff NO MAN DIFF REQ WBC (4.8 - 10.8 /CUMM) 11.9 H RBC (4.70 - 6.10 /CUMM) 5.27 Hgb (14.0 - 18.0 G/DL) 15.7 Hct (42 - 52 %) 47.4 MCV (80.0 - 94.0 FL) 89.9 MCH (27.0 - 31.0 PG) 29.8 RDW (11.5 - 14.5 %) 14.8 H Plt Count (130 - 400 /CUMM) 265 MPV (7.4 - 10.4 FL) 7.3 L Gran % (42.2 - 75.2 %) 57.6 Lymphocytes % (20.5 - 51.1 %) 14.8 L Monocytes % (1.7 - 9.3 %) 6.4 Eosinophils % (0 - 5 %) 20.7 H Basophils % (0.0 - 2.0 %) 0.5 Absolute Granulocytes (1.4 - 6.5 /CUMM) 6.8 H Absolute Lymphocytes (1.2 - 3.4 /CUMM) 1.8 Absolute Monocytes (0.10 - 0.60 /CUMM) 0.8 H Absolute Eosinophils (0.0 - 0.7 /CUMM) 2.4 Absolute Basophils (0.0 - 0.2 /CUMM) 0.1 PUBS MCHC (33.0 - 37.0 G/DL) 33.1 Serology Lyme Disease Antibody Cancelled 06/06 06/05 06/05 7065 0450 2026 Chemistry Sodium (137 - 145 mmol/L) 139 Potassium (3.5 - 5.1 mmol/L) 4.3 Chloride (98 - 107 mmol/L) 102 Carbon Dioxide (22 - 30 mmol/L) 25 Anion Gap (5 - 16) 11 BUN (9 - 20 mg/dL) 17 Creatinine (0.7 - 1.2 mg/dL) 1.2 Estimated GFR (>60 ml/min) > 60 BUN/Creatinine Ratio (7 - 25 %) 14.2 Glucose (65 - 99 mg/dL) 81 Calcium (8.4 - 10.2 mg/dL) 9.7 Total Bilirubin (0.2 - 1.3 mg/dL) 0.7 AST (17 - 59 U/L) 34 ALT (21 - 72 U/L) 38 Alkaline Phosphatase (< 127 U/L) 87 Creatine Kinase (55 - 170 U/L) 229 H Troponin I (<0.11 ng/ml) < 0.01 < 0.01 Total Protein (6.3 - 8.2 g/dL) 7.2 Albumin (3.5 - 5.0 g/dL) 3.8 Globulin (1.9 - 4.2 gm/dL) 3.4 Albumin/Globulin Ratio (1.1 - 2.2 %) 1.1 Triglycerides (<150 mg/dL) 43 Cholesterol (< 200 MG/DL) 136 LDL Cholesterol, Calc (65 - 129 mg/dL) 89 HDL Cholesterol (40 - 60 mg/dL) 39 L Cholesterol/HDL Ratio (0.00 - 4.88 %) 3 Coagulation PT (9.4 - 12.5 SEC) 13.1 H INR (0.90 - 1.17) 1.25 H APTT (25 - 37 SEC) 31 D-Dimer (70 - 232 ng/ml) < 200 Hematology CBC w Diff MAN DIFF ORDERED WBC (4.8 - 10.8 /CUMM) 14.7 H RBC (4.70 - 6.10 /CUMM) 5.81 Hgb (14.0 - 18.0 G/DL) 17.4 Hct (42 - 52 %) 52.4 H MCV (80.0 - 94.0 FL) 90.3 MCH (27.0 - 31.0 PG) 29.9 RDW (11.5 - 14.5 %) 14.6 H Plt Count (130 - 400 /CUMM) 300 MPV (7.4 - 10.4 FL) 7.1 L Gran % (42.2 - 75.2 %) 56.0 Lymphocytes % (20.5 - 51.1 %) 18.1 L Monocytes % (1.7 - 9.3 %) 7.1 Eosinophils % (0 - 5 %) 16.7 H Basophils % (0.0 - 2.0 %) 2.1 H Absolute Granulocytes (1.4 - 6.5 /CUMM) 8.2 H Segmented Neutrophils (42.2 - 75.2 %) 52 Band Neutrophils (0.0 - 5.0 %) 1 Absolute Lymphocytes (1.2 - 3.4 /CUMM) 2.7 Lymphocytes (20.5 - 51.1 %) 22 Monocytes (1.7 - 9.3 %) 8 Absolute Monocytes (0.10 - 0.60 /CUMM) 1.0 H Eosinophils (0 - 5.0 %) 16 H Absolute Eosinophils (0.0 - 0.7 /CUMM) 2.4 Basophils (0.0 - 2.0 %) 1 Absolute Basophils (0.0 - 0.2 /CUMM) 0.3 Platelet Estimate (ADEQUATE) ADEQUATE Normochromic RBCs VERIFIED PUBS MCHC (33.0 - 37.0 G/DL) 33.2 Diagnostic Data EKG Results tracing personally reviewed, shows SR at 68 bpm with likely early repolarization CXR Results IMPRESSION: No acute pulmonary process. Other Results CTA IMPRESSION: 1. No aortic dissection. 2. No pulmonary embolism or other acute intrathoracic abnormality. Bedside Echo (I performed personally) shows normal LV/RV function with normal wall motion and valve function, no pericardial effusion Assessment/Plan Assessment/Plan 1. Chest pain/back pain, unclear etiology 2. Syncopal episode last month, possibly vasovagal as precipitated by back pain 3. Hyperthyroid s/p radio-iodine ablation many years ago now on thyroid replacement 4. Eosinophilia/leukocytosis without fever CTA with no aortic dissection or PE. Chest pain has been low level (1-2/10), unchanging and constant since Monday with no dyspnea, radiation, or exertional component. Serial troponins were normal. No arrhythmia noted on ECG or telemetry monitoring. Vitals within normal limits and physical exam is unremarkable. I personally performed a bedside Echo this morning which shows no obvious abnormalities. The above findings suggest cardiac etiology of the symptoms is unlikely. Recent non-recurrent syncopal episode in the setting of pain may have been vasovagal. Will need further assessment but the additional cardiac assessment can be done with me as outpatient. Noncardiac assessment and additional work up of the eosinophilia/leukocytosis without fever per the medical team but given his report of finding a tick last month (no rash) this should likely include nonemergent evaluation for Lyme. Can try a trial of NSAIDS for pain to see if improvement as costochondritis is in the differential. May also benefit from elective GI evaluation in the future as he did report some dyspepsia last month. After discharge patient is instructed to return to ER via 911 with any new or worsening symptoms. He will follow-up with me in my office in 1 week and will also schedule hospital follow-up visit with Dr. Etienne. Plan was discussed at length with the patient and the medical team. Mejia Grijalva MD [facility] Copies To: TOMAS ETIENNE DO Consult Acknowledgment - Thank you for your consult request.
== END 2016-06-06 12:39 | DRG 313 ==
LOC: ENRESERVTM → ENRESERVDT → CANRESERV → ERH 20:07 → 1NO 22:03 → ERHI 22:03 → EDBEDREQ 22:24 → 1NO 06-06 00:09
PROVIDERS: Emergency Medicine; Internal Medicine; Pediatrics; ADMIT Internal Medicine
DX: R07.89 Other chest pain (principal); D72.1 Eosinophilia; E03.9 Hypothyroidism, unspecified; Z82.49 Family history of ischemic heart disease and other diseases of the circulatory system
CPT/HCPCS: 86618; ERO; 36415; 82436; 93005; 93010; 96374; 99291; J1644; J3490